=== PATIENT | female | born 1970 | race American Indian/Alaskan Native ===

== ENCOUNTER 2017-05-22 15:25 | Inpatient (IN) | payer BC, OTHER ==
[2017-05-22] MEDS ORDERED: ceFAZolin 2 GM in Sodium Chloride 0.9% 100 ML IVPB ONE (16:37)
[2017-05-22 16:47] VITALS: BMI 41.9
[2017-05-22] MEDS: Lactated Ringer's 1,000 ML IV SCH ×2 (17:00→18:00)
[2017-05-22 17:21] LABS: BASO # 0.1 K/uL (0.0-0.2); EOS % 0.3 % (0.0-4.0); HEMOGLOBIN 10.5 g/dL (12.0-16.0); LYMPH # 1.6 K/uL (1.0-4.3); LYMPH % 21.1 % (20.0-40.0); MEAN CELL VOLUME 90.5 fl (81.0-99.0); MEAN CORPUSCULAR HEMOGLOBIN 28.6 pg (27.0-31.0); MEAN CORPUSCULAR HGB CONC 31.6 g/dL (33.0-37.0); MEAN PLATELET VOLUME 10.9 fl (7.2-11.7); MONO # 0.8 K/uL (0.0-0.8); MONO % 10.8 % (0.0-10.0); NEUT % 66.8 % (50.0-75.0); NRBC % 0.3 % (0.0-0.0); RBC 3.69 Mil/uL (3.80-5.20); RED CELL DISTRIBUTION WIDTH 14.9 % (11.5-14.5); WHITE BLOOD COUNT 7.4 K/uL (4.8-10.8)
[2017-05-22] MEDS ORDERED: Oxytocin 30 units/LR 500ML 30 U/500 ML BAG IV ONE (17:21)
[2017-05-22 21:36] VITALS: BP 125/85; PULSE 59; RESP 18; O2SAT 100
[2017-05-23] MEDS ORDERED: Oxytocin 30 units/LR 500ML 30 U/500 ML BAG IV ONE (02:24)
[2017-05-23] MEDS ORDERED: Propofol 10 mg/ml Inj (20 ML) ONE (02:42)
[2017-05-23] MEDS ORDERED: Succinylcholine 200 mg/10 ml Inj IV ONE (02:42)
[2017-05-23] MEDS ORDERED: Rocuronium 10 mg/ml (5 ml) ONE (03:07)
[2017-05-23] MEDS ORDERED: Dexamethasone 4 mg/1 ml ONE (04:09)
[2017-05-23] MEDS ORDERED: Oxycodone/Acetaminophen 5/325 mg Tab PO PRN ×3 (04:21→10:13)
[2017-05-23] MEDS ORDERED: Oxytocin 30 units/LR 500ML 30 U/500 ML BAG IV SCH (04:21)
[2017-05-23] MEDS ORDERED: DiphenhydrAMINE 50 mg/ml Inj IVP PRN ×2 (05:12→10:13)
[2017-05-23] MEDS ORDERED: Lactated Ringer's 1,000 ML IV SCH (07:45)
[2017-05-23] MEDS ORDERED: Lactobacillus Acidophilus 500 MU Cap PO SCH (09:00)
[2017-05-23] MEDS ORDERED: Simethicone 80 mg Chewtab PO PRN ×2 (10:00→10:13)
[2017-05-23] MEDS: Lactobacillus Acidophilus 500 MU Cap PO SCH (16:46)
[2017-05-23] MEDS: Lactated Ringer's 1,000 ML IV SCH (20:01)
[2017-05-24] MEDS: Lactated Ringer's 1,000 ML IV SCH (05:07)
[2017-05-24 06:57] LABS: HEMOGLOBIN 9.2 g/dL (12.0-16.0); MEAN CELL VOLUME 90.9 fl (81.0-99.0); MEAN CORPUSCULAR HEMOGLOBIN 27.9 pg (27.0-31.0); MEAN CORPUSCULAR HGB CONC 30.7 g/dL (33.0-37.0); RBC 3.28 Mil/uL (3.80-5.20); RED CELL DISTRIBUTION WIDTH 15.5 % (11.5-14.5); WHITE BLOOD COUNT 12.9 K/uL (4.8-10.8)
--- NOTE | 2017-05-24 08:24 | OBPPN ---
Datetime: 05/24/2017 08:14 PP Pain Prov: Within normal limits PP Nausea Prov: Denies PP Flatus Prov: No PP BM Prov: No PP Abdomen/Uterus Prov: Normal PP Lochia Prov: Normal PP Extremities Prov: Normal PP C/S Incision Prov: Normal PP Progress Prov: Normal PP Comments Phys Exam Prov: Incision w/ bandage in place PP Progress Note Prov: POD 1 s/p Repeat c/s twins, doing well, tolerating clears H/o DVT, on lovenox OOB today Vital Signs Provider PP: Reviewed
[2017-05-24] MEDS: Lactobacillus Acidophilus 500 MU Cap PO SCH ×2 (08:43→16:39)
[2017-05-24] MEDS: Oxycodone/Acetaminophen 5/325 mg Tab PO PRN (16:40)
[2017-05-24 21:43] LABS: BASO # 0.2 K/uL (0.0-0.2); BASO % 1.1 % (0.0-2.0); HEMOGLOBIN 9.6 g/dL (12.0-16.0); LYMPH # 1.2 K/uL (1.0-4.3); LYMPH % 7.6 % (20.0-40.0); MEAN CELL VOLUME 89.9 fl (81.0-99.0); MEAN CORPUSCULAR HEMOGLOBIN 28.3 pg (27.0-31.0); MEAN CORPUSCULAR HGB CONC 31.5 g/dL (33.0-37.0); MEAN PLATELET VOLUME 10.1 fl (7.2-11.7); MONO # 1.7 K/uL (0.0-0.8); MONO % 10.6 % (0.0-10.0); NEUT % 80.7 % (50.0-75.0); NRBC % 0.1 % (0.0-0.0); PLATELET COUNT 204 K/uL (130-400); RED CELL DISTRIBUTION WIDTH 15.2 % (11.5-14.5); WHITE BLOOD COUNT 16.1 K/uL (4.8-10.8)
[2017-05-24] MEDS ORDERED: GENTAMICIN IVPB SCH (22:00)
[2017-05-24] MEDS ORDERED: SODIUM CHLORIDE 0.9% IVPB SCH (22:00)
[2017-05-24 22:02] LABS: INR 1.1 (0.9-1.2); PARTIAL THROMBOPLASTIN TIME 32.7 Seconds (25.6-37.1); PROTHROMBIN TIME 12.5 Seconds (9.8-13.1)
--- NOTE | 2017-05-24 22:07 | OBPPN ---
Datetime: 05/24/2017 21:56 PP Pain Prov: Within normal limits PP Nausea Prov: Denies PP Flatus Prov: No PP BM Prov: No PP Abdomen/Uterus Prov: Abnormal PP Lochia Prov: Normal PP Extremities Prov: Abnormal PP C/S Incision Prov: Normal PP Progress Prov: Normal PP Comments Phys Exam Prov: Abdomen: hypoactive bowel sounds, mild tenderness diffusely Incision: slightly red on left side, slight serous drainage, nj in place Ext: NT, 1-2+ edema, right pedal edema >left pedal edema PP Impression Prov: Endometritis PP Plan Prov: Antibiotic therapy PP Impression Other Prov: tachtcardia PP Progress Note Prov: POD 1 s/p repeat c/s twins, breast pumping, w/ fever and tachycardia, tolerat ing regular diet, was ambulating around the room w/o difficulty, denies SOB, CP, nausea, vomiting, an xiety, reports a slight productive cough w/ getting up Spoke w/ pt this am about lovenox and she refused it Pt was counseled this am about the risk of DVT and PE given her h/o DVT Pt reports clot was d/t trauma w/ a IV line Internal medicine consult called for tachycardia EKG ordered Tmax 101 at 8:30pm Blood, urine cx ordered Pt started on IV clindamycin 900 q 8 and Gentamicin 165mg q8 to treat presumed endometritis Vital Signs Provider PP: Reviewed
[2017-05-24 22:15] LABS: ALB/GLOB RATIO 0.9 (1.0-2.1); ALT/SGPT 35 U/L (9-52); AST/SGOT 41 U/L (14-36); BLOOD UREA NITROGEN 9 mg/dl (7-17); CALCIUM 8.8 mg/dL (8.4-10.2); GFR AFRICAN-AMERICAN > 60; GFR NON-AFRICAN AMERICAN > 60
--- NOTE | 2017-05-24 22:20 | CP.PCM.CON ---
History of Present Illness - History of Present Illness History of Present Illness: Hospitalist Consult H&P (Patient was seen and examined at 9:30 PM 05/24/17 [id number]) 47 year old female (PMHx Right Arm DVT) who is S/P Vertical delivery on 05/23/17 of 2 females at 33 weeks. Medicine Team was consulted because of tachycardia. Of note patient has a history of Right Arm DVT diagnosed in March 2017 at [facility] after traumatic IV insertion as per patient. She was treated with Lovenox Injections 2x/day at home and patient states that she had a repeat ultrasound at [facility] earlier this month which was negative and therefore she was instructed to use only Lovenox 1x/day at home as she was placed on bedrest for her . Currently upon FULL ROS there is NO chest pain, NO palpitations, NO SOB/Wheezing , Cough productive earlier today (please note no coughing at the time of my interview and examination), NO dysphagia/odynophagia, (+)Abdominal Cramping and some soreness at surgical incision site), NO n/v/d, Last bowel movement was on , NOT passing flatus,, NO burning/pain with urination, NO lightheadedness/ dizziness, NO changes in vision/loss of vision/blurriness vision/eye pain, NO new changes in hearing/ear pain/loss of hearing, NO paresthesias, (+) Bipin of bilateral legs PMHx: Right Arm DVT PSHx: Uterine Polypectomy x 2 via Hysteroscopy, x 3, Lumbar Fusion ( 2014) ALL: NKDA Medication: please see list below Social Hx: Lives with FianceSisters x 2/Cousin, NO tobacco, NO alcohol, NO illicit drugs Family Hx: Mom ( [place] 51 y/o), Dad ( [place] 61 y/o), Sister ( autism) Physical Exam: GENERAL: AAOx3, NAD, Patient is resting comfortably HEENT: NCA, EOMI, PERRLA, NO cervical/supraclavicular/submandibular lymphadenopathy, NO pharyngeal erythma/exudate, NO thyromegaly Cardiology: NS1 and NS2, NO M/R/G, Tachycardic Respiratory: Faint fine late inspiratory crackles bilateral lung bases GI: BSx4 decreased in a quadrants, Central Obesity, Liver and Spleen not examined, NO guarding/rebound tenderness, Vertical Surgical Incision with nj without dehiscence and no signs of surrounding cellulitis (small amount of clear red fluid at the top of the incision) Ext: 1+ Pitting Edema bilateral lower legs (right > left) from ankles to just inferior to the tibial tuborosities, Pulses are strong and equal, Capillary Refill is 2 seconds. Neuro: CN II through XII are grossly intact Assessment and Plan: 1). Sinus Tachycardia Could this be secondary to infection/fever (Endometritis, Pneumonia) vs PE/DVT? Troponin is negative F/U Blood Culture F/U Urine Culture Wells Criteria that are positive for this patient include: Prior DVT (right arm) , Immobilization with bed rest for > 3 days (see HPI above), Clinical signs of DVT (edema of bilateral legs right > left), and Heart Rate > 100 Because of [address] Angio Chest to rule out PE and Bilateral Venous Dopplers of all [address] Angio Chest showed NO evidence of PE but did show bilateral infiltrate/ consolidation mid to lower lungs Venous Dopplers of all 4 extremities were negative for DVT Genatmycin and Clindamycin were initially started by Senior Enterprise Architect for the Endometritis and one dose was already given. As patient was recently hospitalized (in the last 3 months) at [facility], we have to consider Health Care Associated Pneumonia therefore patient has been started on Ampicillin Sulbactam 1.5 gm IV Q6H AND Azithromycin 500 mg IV. The Ampicillin Sulbactam should be equivalent to the combination of Gentamycin and Clindamycin, therefore these 2 antibiotics were discontinued after initial doses after the results of the CT Angio Chest were known. Recommend further antibiotic recommendations from Infectious Disease consultation with Dr. Arash Burch who is button decorating machine operator and this order has been placed. Tylenol 650 mg PO Q6H from 10:15 PM 05/24/17 through 10:15 PM 05/25/17 and then Q6H PRN Fever >100 F. 2). Endometritis Please see Assessment and Plan #1 3). Bilateral Pneumonia Please see Assessment and Plan #1 4). Prophylactic Measures Protonix 40 mg PO 1x/day and Lactobacillus for GI Prophylaxis Lovenox 40 mg SC 1x/day for DVT Prophylaxis CMP and CBC w/diff ordered for 9 AM 05/25/17 Lalito Doyle D.O. Past Patient History - Infectious Disease Hx of Infectious Diseases: None - Past Medical History & Family History Past Medical History?: No - Past Social History Smoking Status: Never Smoked - CARDIAC Hx Cardiac Disorders: No - PULMONARY Hx Respiratory Disorders: No - NEUROLOGICAL Hx Neurological Disorder: No - HEENT Hx HEENT Problems: No - RENAL Hx Chronic Kidney Disease: No - ENDOCRINE/METABOLIC Hx Endocrine Disorders: No - HEMATOLOGICAL/ONCOLOGICAL Hx AIDS: No Hx Human Immunodeficiency Virus (HIV): No Other/Comment: h/o thalasemia - INTEGUMENTARY Hx Dermatological Problems: No - MUSCULOSKELETAL/RHEUMATOLOGICAL Hx Falls: No Hx Herniated Disk: Yes - GASTROINTESTINAL Hx Gastrointestinal Disorders: No Other/Comment: hx of lap band surgery (2004) - GENITOURINARY/GYNECOLOGICAL Hx Genitourinary Disorders: No - PSYCHIATRIC Hx Psychophysiologic Disorder: No Hx Substance Use: No - ANESTHESIA Hx Anesthesia: Yes Hx Anesthesia Reactions: No Hx Malignant Hyperthermia: No Meds Allergies/Adverse Reactions: Allergies Allergy/AdvReac Type Severity Reaction Status Date / Time No Known Allergies Allergy Verified 05/22/17 21:30 - Medications Medications: Current Medications Acetaminophen (Tylenol 325mg Tab) 650 mg PO Q6 [facility] Stop: 05/25/17 22:15 Acetaminophen (Tylenol 325mg Tab) 650 mg PO Q6H PRN PRN Reason: Fever >100.4 F Diphenhydramine HCl (Benadryl) 25 mg IVP Q6 PRN PRN Reason: Itching / Pruritus Enoxaparin Sodium (Lovenox) 40 mg SC DAILY [facility] PRN Reason: Protocol Lactated Ringer's (Lactated Ringer's) 1,000 mls @ 125 mls/hr IV .Q8H [facility] Last Admin: 05/24/17 05:07 Dose: 125 mls/hr Gentamicin Sulfate 165 mg/ (Sodium Chloride) 254.125 mls @ 169.417 mls/hr IVPB 0600,1400,2200 [facility] Clindamycin Phosphate 900 mg/ (Sodium Chloride) 106 mls @ 106 mls/hr IVPB 0530, 1330,2130 [facility] Last Admin: 05/24/17 22:04 Dose: 106 mls/hr Ibuprofen (Motrin Tab) 600 mg PO Q4H PRN PRN Reason: Pain, Mild (1-3) Last Admin: 05/24/17 20:28 Dose: 600 mg Lactobacillus Acidophilus (Bacid Acidophilus) 1 cap PO BID JESSIKA Last Admin: 05/24/17 16:39 Dose: 1 cap Ondansetron HCl (Zofran Inj) 4 mg IVP Q8 PRN PRN Reason: Nausea/Vomiting Oxycodone/Acetaminophen (Percocet 5/325 Mg Tab) 1 tab PO Q4 PRN PRN Reason: Pain, moderate (4-7) Stop: 05/26/17 04:22 Last Admin: 05/24/17 16:40 Dose: 1 tab Oxycodone/Acetaminophen (Percocet 5/325 Mg Tab) 2 tab PO Q4 PRN PRN Reason: Pain, severe (8-10) Stop: 05/26/17 04:22 Sennosides (Senokot Tab) 17.2 mg PO HS JESSIKA Last Admin: 05/23/17 22:23 Dose: Not Given Simethicone (Mylicon Chew Tab) 80 mg PO Q6 PRN PRN Reason: Flatulence Last Admin: 05/24/17 08:44 Dose: 80 mg Results - Vital Signs Recent Vital Signs: Last Vital Signs Temp 98.3 F 05/22/17 21:36 Pulse 59 L 05/22/17 21:36 Resp 18 05/22/17 21:36 BP 125/85 05/22/17 21:36 Pulse Ox 100 05/22/17 21:36 - Labs Result Diagrams: 05/24/17 21:25 05/24/17 21:25 Labs: Laboratory Results - last 24 hr 05/24/17 05/24/17 05/24/17 06:15 21:25 21:25 WBC 12.9 H D 16.1 H RBC 3.28 L 3.40 L Hgb 9.2 L 9.6 L Hct 29.8 L 30.5 L MCV 90.9 89.9 MCH 27.9 28.3 MCHC 30.7 L 31.5 L RDW 15.5 H 15.2 H Plt Count 179 204 MPV 10.1 Neut % (Auto) 80.7 H Lymph % (Auto) 7.6 L [place] % (Auto) 10.6 H Eos % (Auto) 0.0 Baso % (Auto) 1.1 Neut # 13.0 H Lymph # 1.2 [place] # 1.7 H Eos # 0.0 Baso # 0.2 PT 12.5 INR 1.1 APTT 32.7
[2017-05-24 22:48] LABS: ANISOCYTOSIS MODERATE; BANDS 3 % (0-2); LYMPHOCYTE 13 % (20-50); MONOCYTE 10 % (0-10); NEUTROPHIL 74 % (42-75); PLATELET ESTIMATE NORMAL (NORMAL); TOTAL CELLS COUNTED 100
[2017-05-24 22:50] LABS: POIKILOCYTOSIS SLIGHT
[2017-05-24] MEDS ORDERED: Sodium Chloride 0.9% 50 ML IV ONE (23:26)
[2017-05-24] MEDS ORDERED: Iodixanol 320 MG/ML 100 ML BOTTLE IV ONE (23:26)
--- NOTE | 2017-05-25 00:17 | US ---
EXAM: US Duplex Bilateral Lower Extremity Veins CLINICAL HISTORY: 47 years old, female; Signs and symptoms; Other: Techycardia; Additional info: Tachycardia S/P c secrion. HX of dvt right arm TECHNIQUE: Real-time ultrasound scan of the veins of the bilateral lower extremities with color Doppler flow, spectral waveform analysis and compression. EXAM DATE/TIME: 05/24/2017 9:52 PM COMPARISON: No relevant prior studies available. FINDINGS: No evidence of DVT in the common femoral, superficial femoral, popliteal, or posterior tibial veins bilaterally based on compressibility and flow images. IMPRESSION: No acute findings.
--- NOTE | 2017-05-25 00:40 | US ---
EXAM: US Bilateral Duplex Extrem Veins Complete Upper Extremity CLINICAL HISTORY: 47 years old, female; Signs and symptoms; Other: Techycardia/prior h/o dvt rt arm; Additional info: S/P c section. Tachycardia. HX of dvt TECHNIQUE: Real-time ultrasound of the bilateral duplex extrem veins complete upper extremity with image documentation. EXAM DATE/TIME: 05/24/2017 9:52 PM COMPARISON: No relevant prior studies available. FINDINGS: No evidence of thrombus in the internal jugular, subclavian, axillary, brachial, basilic, cephalic, radial, ulnar veins bilaterally based on compressibility and flow images. IMPRESSION: No DVT.
[2017-05-25] MEDS: Oxycodone/Acetaminophen 5/325 mg Tab PO PRN ×2 (01:22→21:57)
[2017-05-25] MEDS: Ampicillin/Sulbactam 1.5 GM in Sodium Chloride 0.9% 100 ML IVPB SCH ×2 (03:57→11:12)
--- NOTE | 2017-05-25 06:41 | OBPPN ---
Datetime: 05/25/2017 06:31 PP Pain Prov: Within normal limits PP Nausea Prov: Denies PP Flatus Prov: No PP Abdomen/Uterus Prov: Normal PP Lochia Prov: Normal PP Extremities Prov: Normal PP C/S Incision Prov: Normal PP Progress Prov: Normal PP Impression Prov: Increased temperature PP Plan Prov: Continue present management PP Progress Note Prov: POD 2 s/p Repeat c/s, w/ pheumonia Pulse is now 102 U/s revealed no DVT, CT chest revelaed infiltrates and consolidation in the mid and lower lungs pr esumably of infectious and atelactatic Pt now on IV erythromycin and unasyn Incentive spirometer ordered Appreciate Internal medicine consult Vital Signs Provider PP: Reviewed
[2017-05-25] MEDS: Enoxaparin 40 mg Syringe SC SCH (09:00)
[2017-05-25 09:18] LABS: BASO # 0.1 K/uL (0.0-0.2); BASO % 0.3 % (0.0-2.0); EOS # 0.1 K/uL (0.0-0.7); EOS % 0.3 % (0.0-4.0); HEMOGLOBIN 8.7 g/dL (12.0-16.0); LYMPH # 1.6 K/uL (1.0-4.3); LYMPH % 10.2 % (20.0-40.0); MEAN CORPUSCULAR HEMOGLOBIN 28.5 pg (27.0-31.0); MEAN CORPUSCULAR HGB CONC 31.6 g/dL (33.0-37.0); MEAN PLATELET VOLUME 10.5 fl (7.2-11.7); MONO # 1.6 K/uL (0.0-0.8); MONO % 10.2 % (0.0-10.0); NEUT # 12.1 K/uL (1.8-7.0); NRBC % 0.1 % (0.0-0.0); RBC 3.07 Mil/uL (3.80-5.20); RED CELL DISTRIBUTION WIDTH 15.1 % (11.5-14.5); WHITE BLOOD COUNT 15.4 K/uL (4.8-10.8)
[2017-05-25] MEDS: Lactobacillus Acidophilus 500 MU Cap PO SCH ×2 (09:31→16:12)
[2017-05-25 09:33] LABS: ALB/GLOB RATIO 0.9 (1.0-2.1); ALBUMIN 2.7 g/dL (3.5-5.0); ALT/SGPT 33 U/L (9-52); AST/SGOT 27 U/L (14-36); BLOOD UREA NITROGEN 8 mg/dl (7-17); CALCIUM 8.5 mg/dL (8.4-10.2); GFR AFRICAN-AMERICAN > 60; GFR NON-AFRICAN AMERICAN > 60
[2017-05-25 09:36] VITALS: TEMP 97.9
[2017-05-25] MEDS: Azithromycin 500 MG in Sodium Chloride 0.9% 250 ML IVPB SCH (09:36)
--- NOTE | 2017-05-25 10:45 | CP.PCM.PN ---
Subjective - Date & Time of Evaluation Date of Evaluation: 05/25/17 Time of Evaluation: 10:42 - Subjective Subjective: - 47 YO F POD #1 was seen at bedside resting comfortably eating oatmeal. She denies any overnight events. Denies any chest pain, SOB, chills, nausea, or vomiting. - Has slight swelling in her left forearm which is subsiding. Have reviewed lab and imaging results with her and have made her aware of the plan. Have answered all questions at bedside. Patient states that she did not want the Lovenox, she has been educated on the reasoning for the ppx, and have explained the risks and complications of not using it. She agrees with the plan and assessment and will continue with treatment. - All questions are asked and answered at bedside Objective - Vital Signs/Intake and Output Vital Signs (last 24 hours): Temp Pulse Resp BP Pulse Ox 97.9 F 59 L 18 125/85 100 05/25/17 09:34 05/22/17 21:36 05/22/17 21:36 05/22/17 21:36 05/22/17 21:36 - Medications Medications: Current Medications Acetaminophen (Tylenol 325mg Tab) 650 mg PO Q6 [facility] Stop: 05/25/17 22:15 Last Admin: 05/25/17 09:34 Dose: 325 mg Acetaminophen (Tylenol 325mg Tab) 650 mg PO Q6H PRN PRN Reason: Fever >100.4 F Diphenhydramine HCl (Benadryl) 25 mg IVP Q6 PRN PRN Reason: Itching / Pruritus Enoxaparin Sodium (Lovenox) 40 mg SC DAILY [facility] PRN Reason: Protocol Lactated Ringer's (Lactated Ringer's) 1,000 mls @ 125 mls/hr IV .Q8H [facility] Last Admin: 05/24/17 05:07 Dose: 125 mls/hr Azithromycin 500 mg/ Sodium (Chloride) 250 mls @ 250 mls/hr IVPB DAILY [facility] Last Admin: 05/25/17 09:36 Dose: 250 mls/hr Ampicillin Sodium/Sulbactam (Sodium 1.5 gm/ Sodium Chloride) 100 mls @ 100 mls/ hr IVPB Q6 [facility] Last Admin: 05/25/17 03:57 Dose: 100 mls/hr Ibuprofen (Motrin Tab) 600 mg PO Q4H PRN PRN Reason: Pain, Mild (1-3) Last Admin: 05/24/17 20:28 Dose: 600 mg Lactobacillus Acidophilus (Bacid Acidophilus) 1 cap PO BID [facility] Last Admin: 05/25/17 09:31 Dose: 1 cap Ondansetron HCl (Zofran Inj) 4 mg IVP Q8 PRN PRN Reason: Nausea/Vomiting Oxycodone/Acetaminophen (Percocet 5/325 Mg Tab) 1 tab PO Q4 PRN PRN Reason: Pain, moderate (4-7) Stop: 05/26/17 04:22 Last Admin: 05/25/17 01:22 Dose: 1 tab Oxycodone/Acetaminophen (Percocet 5/325 Mg Tab) 2 tab PO Q4 PRN PRN Reason: Pain, severe (8-10) Stop: 05/26/17 04:22 Sennosides (Senokot Tab) 17.2 mg PO HS [facility] Last Admin: 05/24/17 23:00 Dose: Not Given Simethicone (Mylicon Chew Tab) 80 mg PO Q6 PRN PRN Reason: Flatulence Last Admin: 05/24/17 08:44 Dose: 80 mg - Labs Labs: 05/25/17 08:30 05/25/17 08:30 PT 12.5 Seconds (9.8-13.1) 05/24/17 21:25 INR 1.1 (0.9-1.2) 05/24/17 21:25 APTT 32.7 Seconds (25.6-37.1) 05/24/17 21:25 - Constitutional Appears: No Acute Distress - Head Exam Head Exam: ATRAUMATIC, NORMAL INSPECTION, NORMOCEPHALIC - Eye Exam Eye Exam: EOMI, Normal appearance - ENT Exam ENT Exam: Mucous Membranes Moist - Respiratory Exam Respiratory Exam: Clear to Ausculation Bilateral, NORMAL BREATHING PATTERN. absent: Rhonchi, Wheezes - Cardiovascular Exam Cardiovascular Exam: REGULAR RHYTHM, +S1, +S2 - Extremities Exam Extremities Exam: Pedal Edema (pitting edema 1+ b/l), Tenderness Additional comments: Left arm slightly more edematous then the right arm. No tenderness or erythema. - Neurological Exam Neurological Exam: Alert, Awake, Oriented x3 - Psychiatric Exam Psychiatric exam: Normal Affect, Normal Mood - Skin Skin Exam: Normal Color, Warm Assessment and Plan - Assessment and Plan (Free Text) Assessment: 1). Sinus Tachycardia - improving 102 in the AM Could this be secondary to infection/fever (Endometritis, Pneumonia) vs PE/DVT? Troponin is negative F/U Blood Culture F/U Urine Culture Wells Criteria that are positive for this patient include: Prior DVT (right arm) , Immobilization with bed rest for > 3 days , Clinical signs of DVT (edema of bilateral legs right > left on initial presentation), and Heart Rate > 100 Because of [address] Angio Chest to rule out PE and Bilateral Venous Dopplers of all [address] Angio Chest showed NO evidence of PE but did show bilateral infiltrate/ consolidation mid to lower lungs Venous Dopplers of all 4 extremities were negative for DVT Genatmycin and Clindamycin were initially started by Engineering Production Liaison for the Endometritis and one dose was already given. As patient was recently hospitalized (in the last 3 months) at [facility], we have to consider Health Care Associated Pneumonia therefore patient has been started on Ampicillin Sulbactam 1.5 gm IV Q6H AND Azithromycin 500 mg IV. The Ampicillin Sulbactam should be equivalent to the combination of Gentamycin and Clindamycin, therefore these 2 antibiotics were discontinued after initial doses after the results of the CT Angio Chest were known. Recommend further antibiotic recommendations from Infectious Disease consultation with Dr. Arash Burch who is transmission builder and this order has been placed. Tylenol 650 mg PO liquid solution has been ordered for Fever > 100.4 PRN. 2). Endometritis Please see Assessment and Plan #1 3). Bilateral Pneumonia Please see Assessment and Plan #1 4). Prophylactic Measures Protonix 40 mg PO 1x/day and Lactobacillus for GI Prophylaxis Lovenox 40 mg SC 1x/day for DVT Prophylaxis
[2017-05-25] MEDS ORDERED: Acetaminophen 650mg/20.3ml solution UD PO PRN (10:49)
--- NOTE | 2017-05-25 11:09 | CT ---
PROCEDURE: CT Chest with contrast (Pulmonary Angiogram) HISTORY: Prior DVT,Immobilization>3 days,Signs of DVT,Tachy. , 2 days ago. COMPARISON: None available. TECHNIQUE: Axial computed tomography images were obtained of the chest in the pulmonary arterial phase of enhancement. Coronal and sagittal reformatted images were created and reviewed. Intravenous contrast dose: 95 mL Visipaque 320 Radiation dose: Total exam DLP = 364.97 mGy-cm. This CT exam was performed using one or more of the following dose reduction techniques: Automated exposure control, adjustment of the mA and/or kV according to patient size, and/or use of iterative reconstruction technique. FINDINGS: PULMONARY ARTERIES: There are no filling defects in the pulmonary arteries to suggest acute pulmonary embolism. . AORTA: No evidence of aortic dissection. No thoracic aortic aneurysm. LUNGS: There is confluent airspace disease in the right lower lobe with air bronchograms. There is also confluent airspace disease in the posterior basal segment of the left lower lobe PLEURAL SPACES: There is a small right and trace left pleural effusions. No pneumothorax. HEART: The heart is normal in size. No pericardial effusion. LYMPH NODES: No pathologic lymphadenopathy. BONES, CHEST WALL: Unremarkable. No fracture or destructive lesion there is OTHER FINDINGS: Status post gastric lap band surgery. Small pneumoperitoneum is likely postoperative in etiology. IMPRESSION: Bilateral lower lobe confluent airspace disease, worse on the right may represent atelectasis however pneumonia cannot be excluded. Small right and trace left pleural effusions. Follow-up after medical management is recommended to ensure complete resolution. No CTA evidence for acute pulmonary embolism, aortic aneurysm or aortic dissection. A preliminary report was provided by [employer].
--- NOTE | 2017-05-25 14:53 | CP.PCM.CON ---
History of Present Illness - History of Present Illness History of Present Illness: 47 year old female (PMHx Right Arm DVT) who is S/P Vertical delivery on 05/23/17 of 2 females at 33 weeks. ID consulted for possible pneumonia, r/o endometritis there is NO chest pain, NO palpitations, NO SOB/Wheezing, Cough productive earlier today (please note no coughing at the time of my interview and examination), NO dysphagia/odynophagia, (+)Abdominal Cramping and some soreness at surgical incision site), NO n/v/d, Last bowel movement was on 05/22/17, NOT passing flatus,, NO burning/pain with urination, NO lightheadedness/dizziness, NO changes in vision/loss of vision/blurriness vision/eye pain, NO new changes in hearing/ear pain/loss of hearing, NO paresthesias, (+) Bipin of bilateral legs PMHx: Right Arm DVT history of Right Arm DVT diagnosed in March 2017 at [facility] after traumatic IV insertion as per patient. She was treated with Lovenox Injections 2x/day at home and patient states that she had a repeat ultrasound at [facility] earlier this month which was negative and therefore she was instructed to use only Lovenox 1x/day at home as she was placed on bedrest for her . PSHx: Uterine Polypectomy x 2 via Hysteroscopy, x 3, Lumbar Fusion ( 2014) ALL: NKDA Medication: please see list below Social Hx: Lives with FianceSisters x 2/Cousin, NO tobacco, NO alcohol, NO illicit drugs Family Hx: Mom ( [place] 51 y/o), Dad ( [place] 61 y/o), Sister ( autism) Review of Systems - Constitutional Constitutional: As Per HPI - EENT Eyes: absent: As Per HPI, Blind Spots, Blurred Vision, Change in Vision, Decreased Night Vision, Diplopia, Discharge, Dry Eye, Exophthalmos, Floaters, Irritation, Itchy Eyes, Loss of Peripheral Vision, Pain, Photophobia, Requires Corrective Lenses, Sees Flashes, Spots in Vision, Tunnel Vision, Other Visual Disturbances, Loss of Vision, Other Ears: absent: As Per HPI, Decreased Hearing, Ear Discharge, Ear Pain, Tinnitus, Abnormal Hearing, Disequilibrium, Dizziness, Other Nose/Mouth/Throat: absent: As Per HPI, Epistaxis, Nasal Congestion, Nasal Discharge, Nasal Obstruction, Nasal Trauma, Nose Pain, Post Nasal Drip, Sinus Pain, Sinus Pressure, Bleeding Gums, Change in Voice, Dental Pain, Dry Mouth, Dysphagia, Halitosis, Hoarsness, Lip Swelling, Mouth Lesions, Mouth Pain, Odynophagia, Sore Throat, Throat Swelling, Tongue Swelling, Facial Pain, Neck Pain, Neck Mass, Other - Breasts Breasts: As Per HPI - Cardiovascular Cardiovascular: absent: As Per HPI, Acrocyanosis, Chest Pain, Chest Pain at Rest , Chest Pain with Activity, Claudication, Diaphoresis, Dyspnea, Dyspnea on Exertion, Edema, Irregular Heart Rhythm, Pain Radiating to Arm/Neck/Jaw, Leg Edema, Leg Ulcers, Lightheadedness, Orthopnea, Palpitations, Paroxysmal Nocturnal Dyspnea, Pedal Edema, Radiating Pain, Rapid Heart Rate, Slow Heart Rate, Syncope, Other - Respiratory Respiratory: As Per HPI - Gastrointestinal Gastrointestinal: absent: As Per HPI, Abdominal Pain, Belching, Bloating, Change in Bowel Habits, Change in Stool Character, Coffee Ground Emesis, Constipation, Cramping, Diarrhea, Dyspepsia, Dysphagia, Early Satiety, Excessive Flatus, Fecal Incontinence, Heartburn, Hematemesis, Hematochezia, Loose Stools, Melena, Nausea, Odynophagia, Temesmus, Vomiting, Other - Genitourinary Genitourinary: absent: As Per HPI, Change in Urinary Stream, Difficulty Urinating, Dysuria, Flank Pain, Hematuria, Pyuria, Nocturia, Urinary Incontinence, Urinary Frequency, Urinary Hesitance, Urinary Urgency, Voiding Freq/Small Amts, Freq UTI, Hx Renal/Bladder Calculi, Hx /Renal Surgery, Bladder Distension, Other - Reproductive: Female Reproductive:Female: As Per HPI - Menstruation Menstruation: As Per HPI - Musculoskeletal Musculoskeletal: As Per HPI - Integumentary Integumentary: As Per HPI - Neurological Neurological: absent: As Per HPI, Abnormal Gait, Abnormal Hearing, Abnormal Movements, Abnormal Speech, Behavioral Changes, Burning Sensations, Confusion, Convulsions, Disequilibrium, Dizziness, Numbness, Focal Weakness, Frequent Falls , Headaches, Lack of Coordination, Loss of Vision, Memory Loss, Paresthesias, Radicular Pain, Restless Legs, Sensory Deficit, Syncope, Tingling, Tremor, Vertigo, Weakness, Other Visual Disturbances, Other - Psychiatric Psychiatric: absent: As Per HPI, Abnormal Sleep Pattern, Anhedonia, Anxiety, Auditory Hallucinations, Behavioral Changes, Change in Appetite, Change in Libido, Confusion, Depression, Difficulty Concentrating, Hallucinations, Homicidal Ideation, Hopelessness, Irritability, Memory Loss, Mood Swings, Panic Attacks, Paranoia, Suicidal Ideation, Visual Hallucinations, Tactile Hallucinations, Other - Endocrine Endocrine: absent: As Per HPI, Change in Body Appearance, Change in Libido, Cold Intolorance, Deepening of Voice, Excessive Sweating, Fatigue, Flushing, Heat Intolorance, Increase in Ring/Shoe/Hat Size, Palpitations, Polydipsia, Polyphagia, Polyuria, Other - Hematologic/Lymphatic Hematologic: absent: As Per HPI, Easy Bleeding, Easy Bruising, Lymphadenopathy, Other Past Patient History - Infectious Disease Hx of Infectious Diseases: None - Past Medical History & Family History Past Medical History?: No - Past Social History Smoking Status: Never Smoked - CARDIAC Hx Cardiac Disorders: No - PULMONARY Hx Respiratory Disorders: No - NEUROLOGICAL Hx Neurological Disorder: No - HEENT Hx HEENT Problems: No - RENAL Hx Chronic Kidney Disease: No - ENDOCRINE/METABOLIC Hx Endocrine Disorders: No - HEMATOLOGICAL/ONCOLOGICAL Hx AIDS: No Hx Human Immunodeficiency Virus (HIV): No Other/Comment: h/o thalasemia - INTEGUMENTARY Hx Dermatological Problems: No - MUSCULOSKELETAL/RHEUMATOLOGICAL Hx Falls: No Hx Herniated Disk: Yes - GASTROINTESTINAL Hx Gastrointestinal Disorders: No Other/Comment: hx of lap band surgery (2004) - GENITOURINARY/GYNECOLOGICAL Hx Genitourinary Disorders: No - PSYCHIATRIC Hx Psychophysiologic Disorder: No Hx Substance Use: No - ANESTHESIA Hx Anesthesia: Yes Hx Anesthesia Reactions: No Hx Malignant Hyperthermia: No Meds Allergies/Adverse Reactions: Allergies Allergy/AdvReac Type Severity Reaction Status Date / Time No Known Allergies Allergy Verified 05/22/17 21:30 - Medications Medications: Current Medications Acetaminophen (Tylenol 650mg/20.3ml Solution Ud) 650 mg PO Q6 PRN PRN Reason: fever Diphenhydramine HCl (Benadryl) 25 mg IVP Q6 PRN PRN Reason: Itching / Pruritus Docusate Sodium (Colace) 100 mg PO BID JESSIKA Last Admin: 05/25/17 11:10 Dose: 100 mg Enoxaparin Sodium (Lovenox) 40 mg SC DAILY [facility] PRN Reason: Protocol Last Admin: 05/25/17 09:00 Dose: Not Given Lactated Ringer's (Lactated Ringer's) 1,000 mls @ 125 mls/hr IV .Q8H [facility] Last Admin: 05/24/17 05:07 Dose: 125 mls/hr Azithromycin 500 mg/ Sodium (Chloride) 250 mls @ 250 mls/hr IVPB DAILY [facility] Last Admin: 05/25/17 09:36 Dose: 250 mls/hr Ampicillin Sodium/Sulbactam (Sodium 1.5 gm/ Sodium Chloride) 100 mls @ 100 mls/ hr IVPB Q6 [facility] Last Admin: 05/25/17 11:12 Dose: 100 mls/hr Ibuprofen (Motrin Tab) 600 mg PO Q4H PRN PRN Reason: Pain, Mild (1-3) Last Admin: 05/24/17 20:28 Dose: 600 mg Lactobacillus Acidophilus (Bacid Acidophilus) 1 cap PO BID [facility] Last Admin: 05/25/17 09:31 Dose: 1 cap Ondansetron HCl (Zofran Inj) 4 mg IVP Q8 PRN PRN Reason: Nausea/Vomiting Oxycodone/Acetaminophen (Percocet 5/325 Mg Tab) 1 tab PO Q4 PRN PRN Reason: Pain, moderate (4-7) Stop: 05/26/17 04:22 Last Admin: 05/25/17 01:22 Dose: 1 tab Oxycodone/Acetaminophen (Percocet 5/325 Mg Tab) 2 tab PO Q4 PRN PRN Reason: Pain, severe (8-10) Stop: 05/26/17 04:22 Sennosides (Senokot Tab) 17.2 mg PO HS [facility] Last Admin: 05/24/17 23:00 Dose: Not Given Simethicone (Mylicon Chew Tab) 80 mg PO Q6 PRN PRN Reason: Flatulence Last Admin: 05/24/17 08:44 Dose: 80 mg Physical Exam - Constitutional Appears: Non-toxic, Chronically Ill - Head Exam Head Exam: ATRAUMATIC, NORMAL INSPECTION, NORMOCEPHALIC - Eye Exam Eye Exam: EOMI, PERRL. absent: Scleral icterus - ENT Exam ENT Exam: Mucous Membranes Dry, Normal External Ear Exam - Neck Exam Neck exam: Negative for: Lymphadenopathy - Respiratory Exam Respiratory Exam: Decreased Breath Sounds, Rhonchi - Cardiovascular Exam Cardiovascular Exam: REGULAR RHYTHM, +S1, +S2 - GI/Abdominal Exam GI & Abdominal Exam: Diminished Bowel Sounds, Soft. absent: Tenderness - Rectal Exam Rectal Exam: Deferred - Exam Exam: NORMAL INSPECTION - Extremities Exam Extremities exam: Positive for: pedal edema, pedal pulses present. Negative for : calf tenderness, tenderness - Back Exam Back exam: absent: CVA tenderness (L), CVA tenderness (R) - Neurological Exam Neurological exam: Alert, CN II-XII Intact, Oriented x3, Reflexes Normal - Psychiatric Exam Psychiatric exam: Normal Mood - Skin Skin Exam: Dry, Intact Results - Vital Signs Recent Vital Signs: Last Vital Signs Temp 97.9 F 05/25/17 09:34 Pulse 59 L 05/22/17 21:36 Resp 18 05/22/17 21:36 BP 125/85 05/22/17 21:36 Pulse Ox 100 05/22/17 21:36 - Labs Result Diagrams: 05/25/17 08:30 05/25/17 08:30 Labs: Laboratory Results - last 24 hr 05/24/17 05/24/17 05/24/17 21:25 21:25 21:25 WBC 16.1 H RBC 3.40 L Hgb 9.6 L Hct 30.5 L MCV 89.9 MCH 28.3 MCHC 31.5 L RDW 15.2 H Plt Count 204 MPV 10.1 Neut % (Auto) 80.7 H Lymph % (Auto) 7.6 L Whitman % (Auto) 10.6 H Eos % (Auto) 0.0 Baso % (Auto) 1.1 Neut # 13.0 H Lymph # 1.2 Whitman # 1.7 H Eos # 0.0 Baso # 0.2 Neutrophils % (Manual) 74 Band Neutrophils % 3 H Lymphocytes % (Manual) 13 L Monocytes % (Manual) 10 Platelet Estimate Normal Poikilocytosis (manual Slight Anisocytosis (manual) Moderate PT 12.5 INR 1.1 APTT 32.7 Sodium 136 Potassium 4.0 Chloride 105 Carbon Dioxide 26 Anion Gap 9 L BUN 9 Creatinine 0.9 Est GFR ( Amer) > 60 Est GFR (Non-Af Amer) > 60 Random Glucose 94 Calcium 8.8 Total Bilirubin 1.0 AST 41 H ALT 35 Alkaline Phosphatase 190 H Troponin I Total Protein 6.3 Albumin 3.0 L Globulin 3.3 Albumin/Globulin Ratio 0.9 L Free T4 TSH 3rd Generation 2.05 05/24/17 05/24/17 05/25/17 21:25 22:50 08:30 WBC 15.4 H RBC 3.07 L Hgb 8.7 L Hct 27.6 L MCV 90.0 MCH 28.5 MCHC 31.6 L RDW 15.1 H Plt Count 191 MPV 10.5 Neut % (Auto) 79.0 H Lymph % (Auto) 10.2 L Whitman % (Auto) 10.2 H Eos % (Auto) 0.3 Baso % (Auto) 0.3 Neut # 12.1 H Lymph # 1.6 Whitman # 1.6 H Eos # 0.1 Baso # 0.1 Neutrophils % (Manual) Band Neutrophils % Lymphocytes % (Manual) Monocytes % (Manual) Platelet Estimate Poikilocytosis (manual Anisocytosis (manual) PT INR APTT Sodium Potassium Chloride Carbon Dioxide Anion Gap BUN Creatinine Est GFR ( Amer) Est GFR (Non-Af Amer) Random Glucose Calcium Total Bilirubin AST ALT Alkaline Phosphatase Troponin I < 0.0120 Total Protein Albumin Globulin Albumin/Globulin Ratio Free T4 1.47 TSH 3rd Generation 05/25/17 08:30 WBC RBC Hgb Hct MCV MCH MCHC RDW Plt Count MPV Neut % (Auto) Lymph % (Auto) Whitman % (Auto) Eos % (Auto) Baso % (Auto) Neut # Lymph # Whitman # Eos # Baso # Neutrophils % (Manual) Band Neutrophils % Lymphocytes % (Manual) Monocytes % (Manual) Platelet Estimate Poikilocytosis (manual Anisocytosis (manual) PT INR APTT Sodium 139 Potassium 3.8 Chloride 106 Carbon Dioxide 26 Anion Gap 11 BUN 8 Creatinine 0.8 Est GFR ( Amer) > 60 Est GFR (Non-Af Amer) > 60 Random Glucose 82 Calcium 8.5 Total Bilirubin 1.0 AST 27 ALT 33 Alkaline Phosphatase 162 H Troponin I Total Protein 5.6 L Albumin 2.7 L Globulin 3.0 Albumin/Globulin Ratio 0.9 L Free T4 TSH 3rd Generation Assessment & Plan - Assessment and Plan (Free Text) Assessment: s/p c section with new infiltrates on cxr r/o pneumonia consider transfer to tele IV antibiotics check cultures
[2017-05-25] MEDS ORDERED: Sodium Chloride 3% for Inhalation 4 ML VIAL.NEB IH PRN (14:58)
--- NOTE | 2017-05-25 17:18 | CARD ---
APPROVED REPORT EKG Measurement Heart [id number] ID [id number] <Conclusion> Sinus tachycardia Cannot rule out Anterior infarct, age undetermined Abnormal ECG
[2017-05-25] MEDS: Piperacillin/Tazobact 3.375 GM in Sodium Chloride 0.9% 100 ML IVPB SCH ×2 (17:41→21:47)
[2017-05-26] MEDS: Piperacillin/Tazobact 3.375 GM in Sodium Chloride 0.9% 100 ML IVPB SCH ×3 (04:12→21:58)
--- NOTE | 2017-05-26 08:21 | OBPPN ---
Datetime: 05/26/2017 08:08 PP Pain Prov: Within normal limits PP Nausea Prov: Denies PP Flatus Prov: Yes PP BM Prov: Yes PP Abdomen/Uterus Prov: Normal PP Lochia Prov: Normal PP Extremities Prov: Normal PP C/S Incision Prov: Normal PP Comments Phys Exam Prov: Incision: verticle incision w/ nj PP Plan Prov: Antibiotic therapy PP Impression Other Prov: Pneumonia PP Progress Note Prov: POD 3 s/p Repeat c/s, twins, w/ pneumonia Continue erythromycin and unasyn Encourage ambulation, IS Vital Signs Provider PP: Reviewed
[2017-05-26] MEDS: Lactobacillus Acidophilus 500 MU Cap PO SCH (09:54)
[2017-05-26] MEDS: Azithromycin 500 MG in Sodium Chloride 0.9% 250 ML IVPB SCH (09:54)
[2017-05-26] MEDS: Enoxaparin 40 mg Syringe SC SCH (10:08)
[2017-05-26] MEDS ORDERED: Oxycodone/Acetaminophen 5/325 mg Tab PO PRN (22:15)
[2017-05-27] MEDS: Piperacillin/Tazobact 3.375 GM in Sodium Chloride 0.9% 100 ML IVPB SCH ×2 (04:36→16:54)
--- NOTE | 2017-05-27 07:58 | OBPPN ---
Datetime: 05/27/2017 07:53 PP Pain Prov: Within normal limits PP Nausea Prov: Denies PP Flatus Prov: Yes PP BM Prov: Yes PP Abdomen/Uterus Prov: Normal PP Lochia Prov: Normal PP C/S Incision Prov: Normal PP Progress Prov: Normal PP Comments Phys Exam Prov: Verticle incision w/ nj PP Plan Prov: Continue present management PP Impression Other Prov: Pneumonia PP Progress Note Prov: POD 4 s/p Repeat c/s w/ pneumonia, on unasyn and erythromycion Possible discharge home today Vital Signs Provider PP: Reviewed
[2017-05-27] MEDS: Azithromycin 500 MG in Sodium Chloride 0.9% 250 ML IVPB SCH (08:38)
[2017-05-27] MEDS: Lactobacillus Acidophilus 500 MU Cap PO SCH ×2 (08:39→16:53)
[2017-05-27] MEDS: Enoxaparin 40 mg Syringe SC SCH (08:47)
[2017-05-27 10:29] LABS: BASO % 0.1 % (0.0-2.0); EOS # 0.1 K/uL (0.0-0.7); EOS % 0.9 % (0.0-4.0); HEMOGLOBIN 7.8 g/dL (12.0-16.0); LYMPH # 1.4 K/uL (1.0-4.3); LYMPH % 17.8 % (20.0-40.0); MEAN CELL VOLUME 89.3 fl (81.0-99.0); MEAN CORPUSCULAR HEMOGLOBIN 28.8 pg (27.0-31.0); MEAN CORPUSCULAR HGB CONC 32.3 g/dL (33.0-37.0); MEAN PLATELET VOLUME 9.4 fl (7.2-11.7); MONO # 0.9 K/uL (0.0-0.8); MONO % 10.6 % (0.0-10.0); NEUT # 5.7 K/uL (1.8-7.0); NEUT % 70.6 % (50.0-75.0); NRBC % 0.4 % (0.0-0.0); RBC 2.71 Mil/uL (3.80-5.20); RED CELL DISTRIBUTION WIDTH 14.9 % (11.5-14.5); WHITE BLOOD COUNT 8.1 K/uL (4.8-10.8)
--- NOTE | 2017-05-27 10:52 | OBDCSUM ---
Datetime: 05/27/2017 10:51 Discharged to, Provider: Home Follow up at, Provider: Dr. Santoyo Disch Instr Activity: Normal activity; May Shower Disch Instr Diet: Regular Discharge Instructions, Provider: Routine instructions given Discharge Diagnosis, Provider: Term Delivered Discharge Time: 05/27/2017 10:52 Follow up in weeks, Provider: 2-3 days Contraception discussed, Prov: No Disch Activity Restrictions: No exercising; No lifting; No driving; No sexual activity; Nothing in v agina - Maceo, tampons, douche
--- NOTE | 2017-05-27 13:12 | CP.PCM.PN ---
Subjective - Date & Time of Evaluation Date of Evaluation: 05/27/17 Time of Evaluation: 09:00 - Subjective Subjective: discussed with Dr Silva- kalina all cultures neg to cont antibiotics Vantin x 10 days with follow up with PMD/ [employer] in 2-3 days Objective - Vital Signs/Intake and Output Vital Signs (last 24 hours): Temp Pulse Resp BP Pulse Ox 97.9 F 59 L 18 125/85 100 05/25/17 09:34 05/22/17 21:36 05/22/17 21:36 05/22/17 21:36 05/22/17 21:36 - Medications Medications: Current Medications Acetaminophen (Tylenol 650mg/20.3ml Solution Ud) 650 mg PO Q6 PRN PRN Reason: fever Diphenhydramine HCl (Benadryl) 25 mg IVP Q6 PRN PRN Reason: Itching / Pruritus Docusate Sodium (Colace) 100 mg PO BID [facility] Last Admin: 05/27/17 08:46 Dose: Not Given Azithromycin 500 mg/ Sodium (Chloride) 250 mls @ 250 mls/hr IVPB DAILY [facility] Last Admin: 05/27/17 08:38 Dose: 250 mls/hr Piperacillin Sod/Tazobactam (Sod 3.375 gm/ Sodium Chloride) 100 mls @ 100 mls/ hr IVPB Q6 [facility] Last Admin: 05/27/17 04:36 Dose: 100 mls/hr Ibuprofen (Motrin Tab) 600 mg PO Q4H PRN PRN Reason: Pain, Mild (1-3) Last Admin: 05/24/17 20:28 Dose: 600 mg Lactobacillus Acidophilus (Bacid Acidophilus) 1 cap PO BID [facility] Last Admin: 05/27/17 08:39 Dose: 1 cap Ondansetron HCl (Zofran Inj) 4 mg IVP Q8 PRN PRN Reason: Nausea/Vomiting Oxycodone/Acetaminophen (Percocet 5/325 Mg Tab) 1 tab PO Q4 PRN PRN Reason: Pain, moderate (4-7) Stop: 05/29/17 22:16 Sennosides (Senokot Tab) 17.2 mg PO [facility] Last Admin: 05/26/17 22:13 Dose: Not Given Simethicone (Mylicon Chew Tab) 80 mg PO Q6 PRN PRN Reason: Flatulence Last Admin: 05/24/17 08:44 Dose: 80 mg - Labs Labs: 05/27/17 09:30 05/25/17 08:30 PT 12.5 Seconds (9.8-13.1) 05/24/17 21:25 INR 1.1 (0.9-1.2) 05/24/17 21:25 APTT 32.7 Seconds (25.6-37.1) 05/24/17 21:25
--- NOTE | 2017-05-27 16:01 | CP.PCM.PN ---
Subjective - Date & Time of Evaluation Date of Evaluation: 05/27/17 Time of Evaluation: 10:45 - Subjective Subjective: No fever feels better occ cough no SOB no CP complains of leg edema Objective - Vital Signs/Intake and Output Vital Signs (last 24 hours): Temp Pulse Resp BP Pulse Ox 97.9 F 59 L 18 125/85 100 05/25/17 09:34 05/22/17 21:36 05/22/17 21:36 05/22/17 21:36 05/22/17 21:36 - Medications Medications: Current Medications Acetaminophen (Tylenol 650mg/20.3ml Solution Ud) 650 mg PO Q6 PRN PRN Reason: fever Diphenhydramine HCl (Benadryl) 25 mg IVP Q6 PRN PRN Reason: Itching / Pruritus Docusate Sodium (Colace) 100 mg PO BID [facility] Last Admin: 05/27/17 08:46 Dose: Not Given Azithromycin 500 mg/ Sodium (Chloride) 250 mls @ 250 mls/hr IVPB DAILY [facility] Last Admin: 05/27/17 08:38 Dose: 250 mls/hr Piperacillin Sod/Tazobactam (Sod 3.375 gm/ Sodium Chloride) 100 mls @ 100 mls/ hr IVPB Q6 [facility] Last Admin: 05/27/17 04:36 Dose: 100 mls/hr Ibuprofen (Motrin Tab) 600 mg PO Q4H PRN PRN Reason: Pain, Mild (1-3) Last Admin: 05/24/17 20:28 Dose: 600 mg Lactobacillus Acidophilus (Bacid Acidophilus) 1 cap PO BID [facility] Last Admin: 05/27/17 08:39 Dose: 1 cap Ondansetron HCl (Zofran Inj) 4 mg IVP Q8 PRN PRN Reason: Nausea/Vomiting Oxycodone/Acetaminophen (Percocet 5/325 Mg Tab) 1 tab PO Q4 PRN PRN Reason: Pain, moderate (4-7) Stop: 05/29/17 22:16 Sennosides (Senokot Tab) 17.2 mg PO [facility] Last Admin: 05/26/17 22:13 Dose: Not Given Simethicone (Mylicon Chew Tab) 80 mg PO Q6 PRN PRN Reason: Flatulence Last Admin: 05/24/17 08:44 Dose: 80 mg - Labs Labs: 05/27/17 09:30 05/25/17 08:30 PT 12.5 Seconds (9.8-13.1) 05/24/17 21:25 INR 1.1 (0.9-1.2) 05/24/17 21:25 APTT 32.7 Seconds (25.6-37.1) 05/24/17 21:25 - Constitutional Appears: No Acute Distress - Head Exam Head Exam: NORMAL INSPECTION, NORMOCEPHALIC - Eye Exam Eye Exam: EOMI, Normal appearance, PERRL Pupil Exam: NORMAL ACCOMODATION - ENT Exam ENT Exam: Mucous Membranes Moist, Normal External Ear Exam - Neck Exam Neck Exam: Full ROM. absent: Meningismus - Respiratory Exam Respiratory Exam: Rales (min rales bases), NORMAL BREATHING PATTERN. absent: Respiratory Distress - Cardiovascular Exam Cardiovascular Exam: REGULAR RHYTHM, +S1, +S2 - GI/Abdominal Exam GI & Abdominal Exam: Distended, Soft, Tenderness (min lower abd tenderness), Normal Bowel Sounds - Extremities Exam Extremities Exam: Full ROM, Normal Capillary Refill, Pedal Edema. absent: Calf Tenderness, Tenderness - Back Exam Back Exam: Full ROM. absent: CVA tenderness (L), CVA tenderness (R) - Neurological Exam Neurological Exam: Alert, Awake, CN II-XII Intact, Normal Gait, Oriented x3 Neuro motor strength exam: Left Upper Extremity: 5, Right Upper Extremity: 5, Left Lower Extremity: 5, Right Lower Extremity: 5 - Skin Skin Exam: Dry, Normal Color, Warm Assessment and Plan (1) Sinus tachycardia Assessment & Plan: sec to Infection and fever now resolved CTA Chest : negative PE Doppler US : neg DVT Status: Acute (2) Pneumonia Assessment & Plan: CT of chest : confluent airspace dis ID consulted pt strted on IV Zosyn and Azithro pt now afebrile WBC count trended down to normal discussed with dr anaya - rec to d/c on PO Vantin 200mg bid x 10 days Status: Acute
--- NOTE | 2017-06-06 13:13 | OBDS ---
DELIVERY PERSONNEL Delivery Doctor: Angela Santoyo MD Scrub Nurse: Leanne Noe Ornamental Painter: Beatrice Boyd RN Anesthesiologist: Arnold Gregory MD Resident: Dr. Juni Barraza OBR MATERNAL INFORMATION Delivery Anesthesia: General Medications in Delivery: Pitocin, NaCl, Ancef 3 gram, LR Estimated Blood Loss (ml): 1,000 Placenta Cultured: Yes Maternal Complications: Other Other Maternal Complications: Pt went into active labor, SROM at 0300 05/22/17, with scheduled R c/s for multuple gestation in AM, oligohydramnios Provider Comments: see operative report LABOR SUMMARY EDC: 07/05/2017 00:00 No. Babies in Womb: 2 Attempted: No Labor Anesthesia: General LABOR INFORMATION Reason for Induction: Not Applicable; Oligohydramnios Reason for Induction Other: Pt went into active labor, SROM at 0300 05/22/17, with scheduled Onset of Labor: 05/22/2017 03:00 Oxytocin: N/A Group B Beta Strep: Done, Result Unknown Steroids Given: None Reason Steroids Not Administered: Not Applicable MEMBRANES Membranes Rupture Method: Spontaneous Rupture of Membranes: 05/22/2017 03:00 Length of Rupture (hrs): 24.35 Amniotic Fluid Color: Clear Amniotic Fluid Amount: Small STAGES OF LABOR Stage 3 hrs: 0 Stage 3 min: 2 Total Time in Labor hrs: 24 Total Time in Labor min: 23 CSECTION DELIVERY Primary Indication: > 2 Previous CSections Other Primary Indication: Pt went into labor with faye r c/s for AM, SROM 05/22 0300 Secondary Indication: Multiple Gestation CSection Urgency: Emergency CSection Incidence: Repeat Labor: Labor Elective: Elective CSection Incision: Lower Vertical BABY A INFORMATION Delivery Date/Time: 05/23/2017 03:21 Method of Delivery: Born in Route : No : N/A Forceps: N/A Vacuum Extraction: N/A Shoulder Dystocia : No SHOULDER DYSTOCIA BABY A Delivery Date/Time: 05/23/2017 03:21 PRESENTATION/POSITION BABY A Presentation: Breech Cephalic Presentation: N/A PLACENTA INFORMATION BABY A Placenta Delivery Time : 05/23/2017 03:23 Placenta Method of Delivery: Manual Removal Placenta Status: Delivered INFORMATION BABY A Gestational Age at Delivery: 33.6 Gestational Status: Infant Outcome : Liveborn Infant Condition : Stable Infant Sex: Female IDENTIFICATION/MEDS BABY A ID Band Number: [id number] ID Band Location: Left Leg; Left Arm WEIGHT/LENGTH BABY A Infant Birthweight (gms): 1790 Infant Weight (lb): 3 Infant Weight (oz): 15 CORD INFORMATION BABY A No. Cord Vessels: 3 Nuchal Cord : N/A Nuchal Cord Other: N/A True Knot: N/A Cord pH Baby Arterial: N/A Cord pH Baby Venous: N/A Cord Blood Taken: Yes Banking/Donate Info: N/A Infant Suction: Mouth; Nose; Pharynx ASSESSMENT BABY A Complications: Other Infant Complications Other: Apneic at , required PPV briefly with good response HR > 100, impr oving tone. scores 5,8. Physical Findings at Delivery: Within Normal Limits Physical Findings Other: NB taken to nursery by Dr. Hamilton and ISABELA RN'S. Calls placed to Dr. Hamilton and ISABELA regarding NB scores at this time of 0615 AM Respirations: Nasal Flaring Manager Personnel Selection/ALS Called : Yes Care By: Dr. Hamilton, Valorie Gama MZApellaRN Transferred To: [facility] BABY B INFORMATION Delivery Date/Time: 05/23/2017 03:22 Method of Delivery : Born in Route : No : N/A Forceps : N/A Vacuum Extraction: N/A Shoulder Dystocia : No SHOULDER DYSTOCIA BABY B Delivery Date/Time: 05/23/2017 03:22 PRESENTATION/POSITION BABY B Presentation : Cephalic Cephalic Position : Vertex Breech Position: N/A ROM/PLACENTA INFO BABY B Rupture of Membranes: 05/22/2017 03:00 Length of Rupture (hrs): 24.37 Placenta Delivery Time : 05/23/2017 03:23 Placenta Method of Delivery: Manual Removal Placental Status : Delivered INFANT INFORMATION BABY B Gestational Age at Delivery: 33.6 Gestational Status : Infant Outcome : Liveborn Condition : Stable Infant Sex : Female IDENTIFICATION/MEDS BABY B ID Band Number : [id number] ID Band Location : Left Leg; Left Arm WEIGHT/LENGTH BABY B Birthweight (gms): 1680 Weight (lb) : 3 Infant Weight (oz): 11 CORD INFORMATION BABY B No. Cord Vessels : 3 Nuchal Cord : N/A Nuchal Cord Other: N/A True Knot : N/A Infant Cord pH Arterial: N/A Cord pH Venous: N/A Cord Blood Taken : Yes Banking/Donate Info : N/A Infant Suction : Mouth; Nose; Pharynx ASSESSMENT BABY B Complications : None Physical Findings at Delivery: Within Normal Limits Physical Findings Other : NB tranferred to [facility] by Dr. Hamilton and ISABELA RN's. Calls placed to Dr. Joy MAR regarding NB scores at this time of 0615 AM Infant Respirations : Appears Normal Manager Personnel Selection/ALS Called : Yes Infant Care By : Dr. Hamilton, Katya Gama MZApellaRN Transfer To: [facility]
--- NOTE | 2017-06-06 13:35 | OBHP ---
Datetime: 05/22/2017 18:21 IP Adm Impression: , intrauterine ; No Active Labor; Intact Membranes IP Admit Plan: Admit to unit Admit Comment, IP Provider: tthe patient is a 4 para 3 EDC 07/05/2017 estimated gestational age 33 weeks 6 days with twin gestation. Patient went for sonogram today was noted to have oligohydra mnios in twin A. The patient was referred about [facility] for repeat sectio n.. Patient has history of 2 previous deliveries. Patient's care complicated by hi story of DVT on Lovenox. Past medical history DVT Past surgical history previous section 53 No known drug allergies Medications Lovenox Social history denies alcohol tobacco use Review of systems patient denies headache chest pain shortness of breath palpitations nausea vomit ing constipation vaginal bleeding dysuria or cold intolerance bruisability musculoskeletal or neurolo gical complaints Vital signs stable afebrile Physical exam seen at Twin gestation 33 weeks 6 days Patient scheduled for operative delivery. Patient took Lovenox today we'll perform surgery in a .m. Discussed risks benefits and alternatives to surgery patient agrees to plan of care Pelvic Type - PN: Adequate Extremities - PN: Normal Abdomen - PN: Normal Back - PN: Normal Breast - PN: Normal Lungs - PN: Normal Heart - PN: Normal Thyroid - PN: Normal Neurologic - PN: Normal HEENT - PN: Normal General - PN: Normal FHR - Baseline A Provider: 145/154 Gestation - Est Wks by US: 33.0 EGA AdmitDate IP: 33.5 Vital Signs Provider: Reviewed IP Chief Complaint: Uterine contractions; Scheduled Section; Maternal discomfort NICHD Variability Prov Fetus A: Moderate 6-25bpm NICHD Accel Fetus A IP Provider: 10X10 NICHD Decel Fetus A IP Provider: None Dilatation, Provider: 1 Effacement, Provider: 50 Station, Provider: -2 Genitourinary Exam: Normal DTRs - PN: Normal
--- NOTE | 2017-06-06 13:43 | OBADHP ---
Datetime: 05/22/2017 18:21 Admit Comment, IP Provider: gideon patient is a 4 para 3 EDC 07/05/2017 estimated gestational age 33 weeks 6 days with twin gestation. Patient went for sonogram today was noted to have oligohydra mnios in twin A. The patient was referred about [facility] for repeat sectio n.. Patient has history of 2 previous deliveries. Patient's care complicated by hi story of DVT on Lovenox. Past medical history DVT Past surgical history previous section 53 No known drug allergies Medications Lovenox Social history denies alcohol tobacco use Review of systems patient denies headache chest pain shortness of breath palpitations nausea vomit ing constipation vaginal bleeding dysuria or cold intolerance bruisability musculoskeletal or neurolo gical complaints Vital signs stable afebrile Physical exam seen at Twin gestation 33 weeks 6 days Patient scheduled for operative delivery. Patient took Lovenox today we'll perform surgery in a .m. Discussed risks benefits and alternatives to surgery patient agrees to plan of care Pelvic Type - PN: Adequate Extremities - PN: Normal Abdomen - PN: Normal Back - PN: Normal Breast - PN: Normal Lungs - PN: Normal Heart - PN: Normal Thyroid - PN: Normal Neurologic - PN: Normal HEENT - PN: Normal General - PN: Normal FHR - Baseline A Provider: 145/154 Gestation - Est Wks by US: 33.0 Vital Signs Provider: Reviewed IP Chief Complaint: Uterine contractions; Scheduled Section; Maternal discomfort NICHD Variability Prov Fetus A: Moderate 6-25bpm NICHD Accel Fetus A IP Provider: 10X10 NICHD Decel Fetus A IP Provider: None Dilatation, Provider: 1 Effacement, Provider: 50 Station, Provider: -2 Genitourinary Exam: Normal DTRs - PN: Normal EGA AdmitDate IP: 33.5 IP Adm Impression: , intrauterine ; No Active Labor; Intact Membranes IP Admit Plan: Admit to unit
--- NOTE | 2017-06-06 13:45 | OBPN ---
Datetime: 06/06/2017 13:35 IP Progress Note Comment: patient reported uterine contractions of moderate to severe intensity monica ent was examined and was noted to be 3-4 cm dilated stat section called to the patient's pr evious history of 3 previous deliveries. Discussed risks benefits alternatives to surgery in formed consent was obtained patient and partner agreed to plan of care Datetime: 05/22/2017 18:21 FHR - Baseline A Provider: 145/154 Gestation - Est Wks by US: 33.0 Vital Signs Provider: Reviewed NICHD Accel Fetus A IP Provider: 10X10 NICHD Variability Prov Fetus A: Moderate 6-25bpm Dilatation, Provider: 1 Effacement, Provider: 50 Station, Provider: -2 NICHD Decel Fetus A IP Provider: None
== END 2017-05-27 19:29 | disposition home or self-care (01) | DRG 765 ==
LOC: H.EROB2 15:25 → H.L&D 16:37 → H.OB/GYN 05-23 10:03
PROVIDERS: ADMIT Obstetrics & Gynecology Gynecology; ATTEND Obstetrics & Gynecology Gynecology
PROC: 10D00Z1 Extraction of Products of Conception, Low, Open Approach (ICD-10-PCS; principal; 2017-05-22)
PROC: 4A1HXCZ Monitoring of Products of Conception, Cardiac Rate, External Approach (ICD-10-PCS; 2017-05-22)
DX: O34.211 Maternal care for low transverse scar from previous cesarean delivery (principal); O75.3 Other infection during labor; J18.9 Pneumonia, unspecified organism; O60.14X0 Preterm labor third trimester with preterm delivery third trimester, not applicable or unspecified; O99.42 Diseases of the circulatory system complicating childbirth; O41.03X0 Oligohydramnios, third trimester, not applicable or unspecified; N85.8 Other specified noninflammatory disorders of uterus; Z3A.33 33 weeks gestation of pregnancy; Z37.0 Single live birth; Z98.84 Bariatric surgery status; Z98.1 Arthrodesis status; Z86.718 Personal history of other venous thrombosis and embolism; N71.9 Inflammatory disease of uterus, unspecified; R00.0 Tachycardia, unspecified; I25.10 Atherosclerotic heart disease of native coronary artery without angina pectoris

== ENCOUNTER 2017-05-31 15:09 | Emergency (ER) | payer BC, MEDICAID ==
[2017-05-31 15:09] VITALS: BMI 41.9
[2017-05-31 15:18] VITALS: BP 150/89; PULSE 97; RESP 16; TEMP 98.8; O2SAT 100
--- NOTE | 2017-05-31 17:20 | US ---
PROCEDURE: Bilateral lower extremity venous duplex Doppler. HISTORY: lower leg pain, post , history of DVT COMPARISON: Bilateral lower extremity Doppler ultrasound performed 05/24/17 TECHNIQUE: Bilateral common femoral, superficial femoral, popliteal and posterior tibial veins were evaluated. Flow was assessed with color Doppler, compressibility, assessment of phasic flow and augmentation response. FINDINGS: COMMON FEMORAL VEIN: Right CFV: Unremarkable. Left CFV: Unremarkable. SUPERFICIAL FEMORAL VEIN: Right SFV: Unremarkable. Left SFV: Unremarkable. POPLITEAL VEIN: Right Popliteal: Unremarkable. Left Popliteal: Unremarkable. POSTERIOR TIBIAL VEIN: Right PTV: Not well-visualized. Left PTV: Not well-visualized. OTHER FINDINGS: Bilateral lower extremity edema. IMPRESSION: No evidence of deep venous thrombosis. Bilateral posterior tibial veins are not well-visualized. Bilateral lower extremity edema.
--- NOTE | 2017-05-31 17:29 | ED PDOC ---
Lower Extremity Pain/Injury Time Seen by Provider: 05/31/17 15:24 Chief Complaint (Nursing): Lower Extremity Problem/Injury Past Medical History Vital Signs: Last Vital Signs Temp 98.8 F 05/31/17 15:17 Pulse 97 H 05/31/17 15:17 Resp 16 05/31/17 15:17 BP 150/89 05/31/17 15:17 Pulse Ox 100 05/31/17 15:17 - Medical History PMH: Denies: HIV, Chronic Kidney Disease - Home Medications Home Medications: Ambulatory Orders Medication Instructions Recorded Folic Acid 2 tab PO DAILY 05/22/17 Vit Calc,Iron,Folic 1 tab PO DAILY 05/22/17 [ Vitamins] Ferrous Sulfate 325 mg PO BID #60 tablet 05/27/17 Ibuprofen [Motrin Tab] 600 mg PO Q6H PRN #30 tab 05/27/17 - Allergies Allergies/Adverse Reactions: Allergies Allergy/AdvReac Type Severity Reaction Status Date / Time No Known Allergies Allergy Verified 05/22/17 21:30 - ECG O2 Sat by Pulse Oximetry: 100 Disposition - Clinical Impression Clinical Impression: Leg pain - Patient ED Disposition Is Patient to be Admitted: No Counseled Patient/Family Regarding: Diagnosis, Need For Followup - Disposition [facility] [Outside] Disposition: Routine/Home Instructions: Leg Pain (ED)
--- NOTE | 2017-05-31 17:32 | ED PDOC ---
Lower Extremity Pain/Injury Time Seen by Provider: 05/31/17 15:24 Chief Complaint (Nursing): Lower Extremity Problem/Injury Chief Complaint (Provider): Lower Extremity Problem/Injury History Per: Patient History/Exam Limitations: no limitations Onset/Duration Of Symptoms: Hrs (prior to arrival ) Additional Complaint(s): Leeanna Cartagena, 47 year old female presents to the ED for bilateral thigh and calf pain and leg swelling. The patient delivered twins via on . Prior to this day, the patient has taken Lovenox for thrombosis, which she had during her , injected on her right upper extremity. She reports seeing Dr. Santoyo today and was sent to the emergency room to rule out Deep Vein Thrombosis. The patient denies any numbness, tingling, fever, chills, and pain or swelling around her ankles. PMD: Adin Santoyo MD Past Medical History Reviewed: Historical Data, Nursing Documentation, Vital Signs Vital Signs: Last Vital Signs Temp 98.8 F 05/31/17 15:17 Pulse 97 H 05/31/17 15:17 Resp 16 05/31/17 15:17 BP 150/89 05/31/17 15:17 Pulse Ox 100 05/31/17 15:17 - Medical History PMH: No Chronic Diseases Denies: HIV, Chronic Kidney Disease - Surgical History Other surgeries: lap band surgery - Family History Family History: States: Unknown Family Hx - Social History Current smoker - smoking cessation education provided: No Ex-Smoker (has not smoked in the last 12 months): No Alcohol: None Drugs: Denies - Home Medications Home Medications: Ambulatory Orders Medication Instructions Recorded Folic Acid 2 tab PO DAILY 05/22/17 Vit Calc,Iron,Folic 1 tab PO DAILY 05/22/17 [ Vitamins] Ferrous Sulfate 325 mg PO BID #60 tablet 05/27/17 Ibuprofen [Motrin Tab] 600 mg PO Q6H PRN #30 tab 05/27/17 - Allergies Allergies/Adverse Reactions: Allergies Allergy/AdvReac Type Severity Reaction Status Date / Time No Known Allergies Allergy Verified 05/22/17 21:30 Review of Systems ROS Statement: Except As Marked, All Systems Reviewed And Found Negative Constitutional: Negative for: Fever, Chills Musculoskeletal: Positive for: Leg Pain (bilateral thigh and calf pain; leg swelling). Negative for: Other (no pain or swelling around ankles ) Neurological: Negative for: Numbness (and no tingling ) Physical Exam - Reviewed Nursing Documentation Reviewed: Yes Vital Signs Reviewed: Yes - Physical Exam Appears: Positive for: Well, Non-toxic, No Acute Distress Head Exam: Positive for: ATRAUMATIC, NORMOCEPHALIC Skin: Positive for: Normal Color, Warm, Dry Eye Exam: Positive for: Normal appearance Extremity: Positive for: Tenderness (to bilateral lateral thighs), Capillary Refill (<2 seconds; DP pulses 2+ bilat). Negative for: Swelling (no pain or edema in lower extremities (ankles)) Neurologic/Psych: Positive for: Alert, Oriented. Negative for: Other (no numbness, no tingling ) - ECG O2 Sat by Pulse Oximetry: 100 (RA) Pulse Ox Interpretation: Normal Medical Decision Making Medical Decision Making: Impression: Bilateral thigh and calf pain & leg swelling Plan: * [US] Duplex Lower Extrm Vein Bilat Stat Scribe Attestation: Documented by Lynn Blunt, acting as a scribe for Adriane Saleh PA-C. Provider Scribe Attestation: All medical record entries made by the Scribe were at my direction and personally dictated by me. I have reviewed the chart and agree that the record accurately reflects my personal performance of the history, physical exam, medical decision making, and the department course for this patient. I have also personally directed, reviewed, and agree with the discharge instructions and disposition. Disposition - Clinical Impression Clinical Impression: Leg pain - Patient ED Disposition Is Patient to be Admitted: No - Disposition Referrals: [facility] [Outside] [facility] [Outside[facility] Disposition: Routine/Home Disposition Time: 17:35 Condition: STABLE Instructions: Leg Pain (ED)
== END 2017-05-31 17:41 | disposition home or self-care (01) ==
LOC: H.ER 15:09
DX: M79.606 Pain in leg, unspecified (principal); R60.0 Localized edema; Z86.718 Personal history of other venous thrombosis and embolism

== ENCOUNTER → 2018-08-26 | Emergency (ER) | payer BC, MEDICAID, OTHER ==
--- NOTE | 2018-08-26 15:00 | OBDCSUM ---
Datetime: 08/26/2018 14:57 Discharged to, Provider: Home Follow up at, Provider: Rene Discharge Time: 08/26/2018 14:57 Follow up in weeks, Provider: today Discharge Diagnosis Prov Other: Injury of external causes complicating , third trimester
--- NOTE | 2018-08-26 15:01 | OBHP ---
Datetime: 08/26/2018 14:16 IP Admit Plan: Observation/Evaluation; Discharge home Admit Comment, IP Provider: 48 yo female at 35.3 GA presents s/p fall. Patient fell while trying to get out of medical van that was on the way to her appointment with Dr Patience Santoyo. She fell on outstretched hands and then hit her abdomen. She denies vaginal bleeding, co ntractions, gush of fluid and she states that the baby is moving well. Denies hitting her head and LO C. ROS: 12 point system reviewed and negative except for above. PE: No acute distress. Heart: S1 and S2. No murmurs, gallops or rubs. Lungs: Clear air entry bilaterally. Abdomen: Gravid. soft and nontender heart monitor: baseline 120; Moderate variability. Accelerations are present. No deceleratio ns. Category 1 tracing. Assessment: 48 yo female at 35.3 GA presents s/p fall. Plan: - Observe on heart monitor for at least 20 minutes. Discharge: 2:30 p.m. - Given reassuring 20 minute tracing, patient stable for discharge. Discussed with Dr. Luisito Yanez, PGY1 Addendum by Dr. Dennison: Patient evaluated independently and I agree with the above Pelvic Type - PN: Not Done Extremities - PN: Normal Abdomen - PN: Normal Back - PN: Normal Breast - PN: Not Done Lungs - PN: Normal Heart - PN: Normal Thyroid - PN: Not Done Neurologic - PN: Normal HEENT - PN: Normal General - PN: Normal FHR - Baseline A Provider: 120 Comments, ACOG Physical Exam: PE: No acute distress. Heart: S1 and S2. No murmurs, gallops or rubs. Lungs: Clear air entry bilaterally. Abdomen: Gravid. soft and nontender heart monitor: baseline 120; Moderate variability. Accelerations are present. No deceleratio ns. Category 1 tracing. EGA AdmitDate IP: 35.3 Vital Signs Provider: Reviewed; Within Normal Limits IP Chief Complaint: Trauma/Fall NICHD Variability Prov Fetus A: Moderate 6-25bpm NICHD Accel Fetus A IP Provider: 15X15 FHR Category Provider Fetus A: Category I NICHD Decel Fetus A IP Provider: None Genitourinary Exam: Normal DTRs - PN: Not Done
[2018-08-26 21:12] VITALS: BP 111/71; PULSE 84; RESP 18; TEMP 98.4; O2SAT 98
== END | disposition home or self-care (01) ==
LOC: EDBD 13:31 → H.EROB2 13:31
DX: O26.93 Pregnancy related conditions, unspecified, third trimester (principal); Z04.3 Encounter for examination and observation following other accident; Z3A.35 35 weeks gestation of pregnancy

== ENCOUNTER 2018-09-13 06:23 | Inpatient (IN) | payer OTHER ==
[2018-09-13 06:40] VITALS: BMI 38.7
[2018-09-13] MEDS: Lactated Ringer's 1,000 ML IV ONE ×2 (07:00→08:00)
[2018-09-13] MEDS ORDERED: OXYTOCIN/0.9 % NS 20 UNIT/1,000 ML BAG IV ONE ×2 (07:22→16:17)
[2018-09-13] MEDS ORDERED: ceFAZolin IV 2 gm in Dextrose 2 GM/50 ML BAG IVPB ONE ×2 (07:34→10:00)
[2018-09-13] MEDS ORDERED: ceFAZolin 2 GM in Sodium Chloride 0.9% 100 ML IVPB ONE (07:45)
[2018-09-13] MEDS ORDERED: Oxytocin 30 UNIT 30 UNITS/500 ML BAG IV ONE (07:45)
[2018-09-13 08:07] LABS: BASO # 0.1 K/uL (0.0-0.2); BASO % 0.8 % (0.0-2.0); EOS % 0.3 % (0.0-4.0); HEMOGLOBIN 11.3 g/dL (12.0-16.0); LYMPH # 1.7 K/uL (1.0-4.3); LYMPH % 24.4 % (20.0-40.0); MEAN CELL VOLUME 91.6 fl (81.0-99.0); MEAN CORPUSCULAR HEMOGLOBIN 29.6 pg (27.0-31.0); MEAN CORPUSCULAR HGB CONC 32.3 g/dL (33.0-37.0); MEAN PLATELET VOLUME 11.6 fl (7.2-11.7); MONO # 0.5 K/uL (0.0-0.8); MONO % 7.3 % (0.0-10.0); NEUT # 4.6 K/uL (1.8-7.0); NEUT % 67.2 % (50.0-75.0); NRBC % 0.1 % (0.0-0.0); RBC 3.84 Mil/uL (3.80-5.20); RED CELL DISTRIBUTION WIDTH 14.2 % (11.5-14.5); WHITE BLOOD COUNT 6.8 K/uL (4.8-10.8)
[2018-09-13] MEDS ORDERED: Propofol 10 mg/ml Inj (20 ML) ONE (08:30)
[2018-09-13] MEDS ORDERED: Succinylcholine 200 mg/10 ml Inj IV ONE (08:30)
[2018-09-13] MEDS ORDERED: ePHEDrine 50 mg/ml Inj ONE (08:35)
[2018-09-13] MEDS ORDERED: Rocuronium 10 mg/ml (5 ml) ONE ×2 (08:50→08:51)
[2018-09-13] MEDS ORDERED: Neostigmine 1:1000 (1 mg/ml) Inj ONE (08:51)
[2018-09-13] MEDS ORDERED: Dexamethasone 4 mg/1 ml ONE (09:26)
[2018-09-13] MEDS ORDERED: Morphine 5 mg/10 ml preservative-free Inj(Duramorph) ONE (10:00)
--- NOTE | 2018-09-13 10:37 | OBADHP ---
Datetime: 09/13/2018 07:50 Admit Comment, IP Provider: HPI: Leeanna is a 48 yo who presents for a schduled repeat at 38 weeks gestation. LMP of 12/21/17 for a EDC of 09/27/2018. Denies contractions, vaginal bleeding or LOF. This was complicated by IVF, AMA and a history of a gastric banding procedure. 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 Thalassemia PSH x4 Spinal surgery with Spence danica placement Lap band procedure Cerclage placement with last - still in place Family History Not significant Social History Denies alcoho, tobacco or drug use Allergies NKDA Medications PNV Henning - until 36 weeks OBJECTIVE See exam section labs: A+, Hep B neg, HIV/RPR neg, GBS neg Assessment/Plan: 48yo with a history of 4 previous C-sections and presents at 3 8 weeks for repeat - 2g Ancef - CBC, type and screen - Plan to also remove the cerclage - Previously has had general anesthesia, plans to discuss this with anesthesia this morning Coby Adams MD OB Fellow The patient was seen with the resident I agree with the note Abdomen - PN: Normal Lungs - PN: Normal Heart - PN: Normal HEENT - PN: Normal General - PN: Normal IP Fetus A Comments: Reactive NST FHR - Baseline A Provider: 120 Comments, ACOG Physical Exam: Abdomen: patient has previous external vertical abdominal incision bel ow the umbilicus as well as a low trasverse scar Gestation - Est Wks by US: 38.0 Vital Signs Provider: Reviewed; Within Normal Limits IP Chief Complaint: Scheduled Section NICHD Variability Prov Fetus A: Moderate 6-25bpm NICHD Accel Fetus A IP Provider: 15X15 NICHD Decel Fetus A IP Provider: None EGA AdmitDate IP: 38.0 IP Adm Impression: Term, intrauterine IP Admit Plan: Admit to unit; Initiate Section protocol Datetime: 08/26/2018 14:16 Pelvic Type - PN: Not Done Extremities - PN: Normal Back - PN: Normal Breast - PN: Not Done Thyroid - PN: Not Done Neurologic - PN: Normal FHR Category Provider Fetus A: Category I Genitourinary Exam: Normal DTRs - PN: Not Done
[2018-09-13] MEDS ORDERED: Naloxone 0.4 mg/ml Inj (Adult) IVP PRN ×2 (10:38→16:40)
[2018-09-13] MEDS ORDERED: DiphenhydrAMINE 50 mg/ml Inj IVP PRN ×2 (10:38→16:40)
--- NOTE | 2018-09-13 10:57 | OBDS ---
DELIVERY PERSONNEL Delivery Doctor: Angela Santoyo MD Legal Adviser: Josefina Obrien RN Anesthesiologist: Dr. Scanlon MATERNAL INFORMATION Delivery Anesthesia: General Medications in Delivery: Pitocin 30 units Estimated Blood Loss (ml): 1000 Placenta Cultured: No Maternal Complications: None Provider Comments: See operative report LABOR SUMMARY EDC: 09/27/2018 00:00 No. Babies in Womb: 1 Attempted: No Labor Anesthesia: None LABOR INFORMATION Reason for Induction: Not Applicable Oxytocin: N/A Group B Beta Strep: Negative Steroids Given: None Reason Steroids Not Administered: Not Applicable MEMBRANES Membranes Rupture Method: Artificial Rupture of Membranes: 09/13/2018 10:19 Length of Rupture (hrs): -0.98 Amniotic Fluid Color: Bloody Amniotic Fluid Amount: Small Amniotic Fluid Odor: Normal STAGES OF LABOR Stage 3 hrs: 0 Stage 3 min: 1 CSECTION DELIVERY Primary Indication: Repeat Elective Secondary Indication: > 2 Previous CSections CSection Urgency: Elective CSection Incidence: Repeat Labor: N/A Elective: Elective CSection Incision: Classical BABY A INFORMATION Delivery Date/Time: 09/13/2018 09:20 Method of Delivery: Born in Route : No : N/A Forceps: N/A Vacuum Extraction: N/A Shoulder Dystocia : No SHOULDER DYSTOCIA BABY A Infant Delivery Date/Time: 09/13/2018 09:20 PRESENTATION/POSITION BABY A Presentation: Cephalic Cephalic Presentation: Vertex Breech Presentation: N/A PLACENTA INFORMATION BABY A Placenta Delivery Time : 09/13/2018 09:21 Placenta Method of Delivery: Expressed Placenta Status: Delivered SCORES BABY A Heart Rate 1 min: >100 bpm Resp Effort 1 min: Good Cry Reflex Irritability 1 min: Cough or Sneeze or Pulls Away Muscle Tone 1 min: Active Motion Color 1 min: Body [place], Extremities Blue Resuscitation Effort 1 min: Tactile Stimulation SCORE 1 MIN: 9 Heart Rate 5 min: >100 bpm Resp Effort 5 min: Good Cry Reflex Irritability 5 min: Cough or Sneeze or Pulls Away Muscle Tone 5 min: Active Motion Color 5 min: Body [place], Extremities Blue Resuscitation Effort 5 min: Tactile Stimulation SCORE 5 MIN: 9 INFORMATION BABY A Gestational Age at Delivery: 38.0 Gestational Status: Term Infant Outcome : Liveborn Condition : Stable Infant Sex: Male IDENTIFICATION/MEDS BABY A ID Band Number: [id number] ID Band Location: Left Leg; Left Arm Vitamin K Given : Not Given Erythromycin Given: Not Given WEIGHT/LENGTH BABY A Infant Birthweight (gms): 2800 Weight (lb): 6 Weight (oz): 3 CORD INFORMATION BABY A No. Cord Vessels: 3 Nuchal Cord : N/A Nuchal Cord Other: n/a True Knot: n/a Infant Cord pH Baby Arterial: n/a Cord pH Baby Venous: n/a Cord Blood Taken: Yes Banking/Donate Info: n/a Infant Suction: Mouth; Nose ASSESSMENT BABY A Complications: None Physical Findings at Delivery: Within Normal Limits Respirations: Appears Normal Collar Feller/ALS Called : No Infant Care By: Dr Ramirez/Annabel Pineda/Josselin Transferred To: [facility]
--- NOTE | 2018-09-13 15:53 | OBPPN ---
Datetime: 09/13/2018 15:45 PP Pain Prov: Within normal limits PP Nausea Prov: Denies PP Abdomen/Uterus Prov: Normal PP Lochia Prov: Normal PP Extremities Prov: Normal PP C/S Incision Prov: Normal PP Comments Phys Exam Prov: Incision w/ clean bandage PP Impression Prov: Normal progression PP Plan Prov: Continue present management PP Progress Note Prov: Called to see pt for saturated bandage, POD 0 s/p repeat c/s (5th), second ba ndage placed AFVSS, BP 108/64, pulse 66 Pt w/ no c/o, pain well-controlled w/ Dilaudid BLADDER CHANGER Hgb 11.3 this am prior to c/s Rec that IVF be opened and CBC be drawn Vital Signs Provider PP: Reviewed
[2018-09-13 16:06] LABS: BASO # 0.1 K/uL (0.0-0.2); BASO % 0.6 % (0.0-2.0); LYMPH % 8.6 % (20.0-40.0); MEAN CORPUSCULAR HEMOGLOBIN 28.9 pg (27.0-31.0); MEAN CORPUSCULAR HGB CONC 31.8 g/dL (33.0-37.0); MEAN PLATELET VOLUME 10.8 fl (7.2-11.7); MONO # 0.3 K/uL (0.0-0.8); MONO % 2.6 % (0.0-10.0); NEUT # 10.1 K/uL (1.8-7.0); NEUT % 88.2 % (50.0-75.0); PLATELET COUNT 177 K/uL (130-400); RBC 3.12 Mil/uL (3.80-5.20); RED CELL DISTRIBUTION WIDTH 13.9 % (11.5-14.5); WHITE BLOOD COUNT 11.4 K/uL (4.8-10.8)
[2018-09-13 18:27] LABS: ANISOCYTOSIS MODERATE; BANDS 5 % (0-2); LYMPHOCYTE 11 % (20-50); MONOCYTE 4 % (0-10); NEUTROPHIL 80 % (42-75); PLATELET ESTIMATE NORMAL (NORMAL); POIKILOCYTOSIS SLIGHT; POLYCHROMIC SLIGHT; TOTAL CELLS COUNTED 100
[2018-09-14 07:31] LABS: HEMOGLOBIN 8.1 g/dL (12.0-16.0); MEAN CELL VOLUME 91.6 fl (81.0-99.0); MEAN CORPUSCULAR HEMOGLOBIN 29.6 pg (27.0-31.0); MEAN CORPUSCULAR HGB CONC 32.3 g/dL (33.0-37.0); RBC 2.74 Mil/uL (3.80-5.20); WHITE BLOOD COUNT 8.8 K/uL (4.8-10.8)
[2018-09-14] MEDS ORDERED: Multivitamin With Minerals Tab PO SCH (09:00)
[2018-09-14] MEDS: Multivitamin With Minerals Tab PO SCH (10:02)
[2018-09-14] MEDS ORDERED: Oxycodone/Acetaminophen 5/325 mg Tab PO PRN (11:54)
[2018-09-14] MEDS: Oxycodone/Acetaminophen 5/325 mg Tab PO PRN ×2 (18:17→22:41)
--- NOTE | 2018-09-15 07:20 | OBPPN ---
Datetime: 09/15/2018 07:12 PP Pain Prov: Within normal limits PP Nausea Prov: Denies PP Flatus Prov: Yes PP BM Prov: No PP Abdomen/Uterus Prov: Normal PP Lochia Prov: Normal PP Extremities Prov: Normal PP C/S Incision Prov: Abnormal PP Progress Prov: Normal PP Impression Prov: Normal progression PP Plan Prov: Continue present management PP Progress Note Prov: POD 2 s/p Repeat c/s, doing well although the Shavonne dressing is saturated. Will change dssg this am Continue current care Vital Signs Provider PP: Reviewed
[2018-09-15] MEDS: Oxycodone/Acetaminophen 5/325 mg Tab PO PRN ×2 (07:54→16:40)
[2018-09-15] MEDS: Multivitamin With Minerals Tab PO SCH (08:22)
--- NOTE | 2018-09-15 08:37 | OBPPN ---
Datetime: 09/14/2018 10:22 PP Pain Prov: Within normal limits PP Nausea Prov: Denies PP Flatus Prov: Yes PP Breasts Prov: Normal PP Heart Prov: Normal PP Lungs Prov: Normal PP Abdomen/Uterus Prov: Normal PP Lochia Prov: Normal PP Vulva/Perineum Prov: Normal PP CVA Tenderness Prov: Normal PP Extremities Prov: Normal PP Comments Phys Exam Prov: Vertical incision clean and intact, small amount of serosanguineous flui d, suction dressing removed and replaced with another suction dressing. No erythema, swelling, indura tion, purulent discharge. Abdomen soft, nontender, nondistended Uterus firm, below umbilicus PP Impression Prov: Normal progression PP Progress Note Prov: Postoperative day #1 status post repeat Maintaining dressing changes Postoperative CBC Regular diet Patient out of bed and ambulating Pain control Vital Signs Provider PP: Reviewed; Within Normal Limits
[2018-09-15] MEDS ORDERED: Lansinoh for Breast Feeding Mothers TP ONE (13:09)
[2018-09-16] MEDS: Oxycodone/Acetaminophen 5/325 mg Tab PO PRN ×4 (03:52→20:07)
--- NOTE | 2018-09-16 06:51 | OP ---
PROCEDURE DATE: 09/13/2018 PREOPERATIVE DIAGNOSES: Intrauterine at 38 weeks, history of previous section x4, history of previous laparotomy. SURGEON: Adin Santoyo MD. CHIP MACHINE OPERATOR: Dr Vidal and Dr. Coby Adams. ANESTHESIA: General. ANESTHESIOLOGIST: Mandi Scanlon MD. ESTIMATED BLOOD LOSS: Approximately 1000 mL. FLUIDS: The patient received approximately 1800 mL of D5 LR intraoperatively. URINE OUTPUT: Approximately 300 mL of clear urine. DESCRIPTION OF PROCEDURE: After informed consent was obtained, we discussed the risks of the surgery, we discussed the risk of bowel, bladder, ureter injury. We discussed possible hysterectomy. The patient was given the opportunity to ask questions, all questions answered. The patient agreed to proceed with surgery. The patient was taken to the operating room, where she was given general anesthesia. A vertical incision was made and carried down to the underlying layer of fascia. The fascia was incised in the midline and the fascial incision was then extended superiorly and inferiorly. The rectus muscles were then in the midline. The peritoneum identified and entered sharply with Metzenbaum scissors. The incision was then extended superiorly and inferiorly. There were filmy bladder adhesions noted and they were lysed using the Metzenbaum scissors. The bladder blade was then inserted and a vertical uterine incision was made with a scalpel. The was then delivered atraumatically and nose and mouth were suctioned with DeLee suction trap. The cord was clamped and cut. The infant was handed off to awaiting pediatricians. The placenta was then removed manually. The uterus was exteriorized and cleared of all clots and debris. The first layer of the uterus was closed using [id number] sutures. The second layer was used to close the myometrium, it was 0 Vicryl in a running lock fashion and a third layer was used to close the serosa with 0 Vicryl in a running fashion. The uterus was then returned to the abdomen. The abdomen was then copiously irrigated. The irrigant was removed with a suction device. Hemostasis was noted. Gelfoam was applied to the uterine incision. The fascia was then closed in a mass suture using 0 PDS. Subcuticular tissue was closed with 2-0 Vicryl in a running fashion. The skin was closed with nj. All sponge, lap, needle, and instrument counts were correct x2 and the patient was taken to the recovery room in awake and stable condition. Adin Santoyo MD
--- NOTE | 2018-09-16 11:01 | OBPPN ---
Datetime: 09/16/2018 10:57 PP Pain Prov: Within normal limits PP Nausea Prov: Denies PP Flatus Prov: Yes PP Breasts Prov: Normal PP Heart Prov: Normal PP Lungs Prov: Normal PP Abdomen/Uterus Prov: Normal PP Lochia Prov: Normal PP Vulva/Perineum Prov: Normal PP CVA Tenderness Prov: Normal PP Extremities Prov: Normal PP Comments Phys Exam Prov: Incision dry/intact, bandage soaked and changed +nj intact PP Impression Prov: Normal progression PP Plan Prov: Continue present management PP Progress Note Prov: Patient evaluated, comfortable - no CP, no N/V, tolerating PO diet, ambulatin g/voiding well, mild lochia, +flatus, +BM, abdominal pain tolerable with meds A/P POD #3 1. VIKI dressing changed and re-applied. +Nj intact 2. continue Percocet/Motrin prn pain 3. Encourage ambulation/ IP PP Procedures: None Vital Signs Provider PP: Reviewed; Within Normal Limits
[2018-09-16] MEDS: Multivitamin With Minerals Tab PO SCH (18:35)
[2018-09-17] MEDS: Multivitamin With Minerals Tab PO SCH (08:30)
--- NOTE | 2018-09-17 09:56 | OBPPN ---
Datetime: 09/17/2018 09:47 PP Pain Prov: Within normal limits PP Nausea Prov: Denies PP Flatus Prov: Yes PP BM Prov: Yes PP Breasts Prov: Normal PP Heart Prov: Normal PP Lungs Prov: Normal PP Abdomen/Uterus Prov: Normal PP Lochia Prov: Normal PP Vulva/Perineum Prov: Normal PP CVA Tenderness Prov: Normal PP Extremities Prov: Normal PP C/S Incision Prov: Abnormal PP Impression Prov: Normal progression PP Plan Prov: Discharge PP Progress Note Prov: In NAD Incision covered - not soaked; lower third discoloered but not wet. Rubella IMMUNE MAR 05 2018 A; S/P day 4 PLAN: discharge home - wants Liquid Motrin (needs script for insurance to pay acc to pt)...also wi ll give Percoset PRN...follow-up in 2d Vital Signs Provider PP: Reviewed; Within Normal Limits
--- NOTE | 2018-09-17 18:52 | OBDCSUM ---
Datetime: 09/17/2018 11:12 Discharged to, Provider: Home Follow up at, Provider: Rene Lino Instr Activity: Normal activity; May Shower Disch Instr Diet: Regular Discharge Diagnosis, Provider: Term Delivered Discharge Time: 09/17/2018 12:00 Follow up in weeks, Provider: 2 days Disch Referrals: None Disch Activity Restrictions: No exercising; No lifting; Minimize walking; Minimize stair-climbing; N o sexual activity; Nothing in vagina - [place], tampons, douche
[2018-09-17 23:18] VITALS: BP 122/80; PULSE 80; RESP 20; TEMP 98.1; O2SAT 98
== END 2018-09-17 14:00 | disposition home or self-care (01) | DRG 370 ==
LOC: H.L&D 07:33 → H.OB/GYN 14:09
PROVIDERS: ADMIT Obstetrics & Gynecology Gynecology; ATTEND Obstetrics & Gynecology Gynecology
PROC: 10D00Z1 Extraction of Products of Conception, Low, Open Approach (ICD-10-PCS; principal; 2018-09-13)
PROC: 4A1HXCZ Monitoring of Products of Conception, Cardiac Rate, External Approach (ICD-10-PCS; 2018-09-13)
DX: O34.211 Maternal care for low transverse scar from previous cesarean delivery (principal); O99.02 Anemia complicating childbirth; N85.8 Other specified noninflammatory disorders of uterus; Z37.0 Single live birth; Z3A.38 38 weeks gestation of pregnancy; O99.214 Obesity complicating childbirth